=== PATIENT | female | born 1970 | race African-American/Black ===

== ENCOUNTER 2017-09-15 12:00 | Inpatient (IN) | payer MEDICAID, OTHER ==
[~2017-09-15] VITALS: Ht 160 cm; Wt 64.2 kg
[~2017-09-15 12:00] MED LIST: LEVO125T48 PO; NEVI200 PO; ZOVI800T13 PO; [UNRECOGNIZED DRUG - OTHER]
[2017-09-15 12:02] VITALS: BP 183/102; PULSE 76; RESP 16; TEMP 97.9; O2SAT 99
[2017-09-15] MEDS ORDERED: [UNRECOGNIZED DRUG - REMARK] (12:31)
[2017-09-15 12:32] VITALS: BP 141/93
--- NOTE | 2017-09-15 13:46 | PD ---
HPI Chief Complaint: Edema Time Seen by Provider: 12:41 Travel History International Travel<30 days: No Contact w/Intl Traveler<30days: No Traveled to known affect area: No History of Present Illness HPI Is a 47-year-old woman who presents to the emergency department complaining of pain and swelling to her right wrist. Is been going on for about 12 days or so now. She is on clindamycin for about a week and hasn't really helped. She has a history of HIV, is taking medications, but does know her last CD4 count. No history of major operation infections that she knows of. Pain is always gotten worse. She does feel some warmth. No fevers or chills. No history of IV drug use. Pain is radiating from the wrist up into the arm. She been taking over- the-counter medications which have not helped. History Past Medical History Narrative Medical HIV, diagnosed 89, on medications Hypothyroidism Social History Alcohol Use: Yes (occasional) Tobacco Use: No Allergies-Medications (Allergen,Severity, Reaction): Coded Allergies: egg (Verified Allergy, Intermediate, Cramping, 09/15/17) penicillin G (Unverified Allergy, Intermediate, rash, 09/15/17) Reported Meds & Prescriptions Reported Meds & Active Scripts Active Reported [unknown HIV med] Review of Systems Except as stated in HPI: all other systems reviewed are Neg Physical Exam Narrative GENERAL: Well-appearing 39 year-old woman, no acute distress. SKIN: Focused skin assessment warm/dry. HEAD: Atraumatic. Normocephalic. NECK: Trachea midline. No JVD. CARDIOVASCULAR: Regular rate and rhythm. No murmur appreciated. Soft systolic murmur in the right upper sternal border. RESPIRATORY: No accessory muscle use. Clear to auscultation. Breath sounds equal bilaterally. GASTROINTESTINAL: Abdomen soft, non-tender, nondistended. Hepatic and splenic margins not palpable. MUSCULOSKELETAL: Little bit visible fullness to the right wrist. She guards the wrist some and resists flexing or extending it at all. She move the fingers. It feels a little bit warm. There is no obvious color changes although she is dark skinned. Good pulses. NEUROLOGICAL: Awake and alert. No obvious cranial nerve deficits. Motor grossly within normal limits. Normal speech. PSYCHIATRIC: Appropriate mood and affect; insight and judgment normal. Data Data Last Documented VS Vital Signs Date Time Temp Pulse Resp B/P (MAP) Pulse Ox O2 Delivery O2 Flow Rate FiO2 09/15/17 12:32 141/93 (109) 09/15/17 12:02 97.9 76 16 99 Room Air Orders Orders Complete Blood Count With Diff (09/15/17 13:16) Comprehensive Metabolic Panel (09/15/17 13:16) Westergren Sedimentation Rate (09/15/17 13:16) C-Reactive Protein (Crp) (09/15/17 13:16) Iv Access Insert/Monitor (09/15/17 13:16) Aspiration, Wrist (09/15/17 ) Fluid Culture And Gram Stain (09/15/17 13:16) Synovial Fl Cell Count + Diff (09/15/17 13:16) Synovial Fluid Crystals (09/15/17 13:16) Synovial Fluid Glucose (09/15/17 13:16) Synovial Fluid Total Protein (09/15/17 13:16) Act Partial Throm Time (Ptt) (09/15/17 13:34) Prothrombin Time / Inr (Pt) (09/15/17 13:34) Mri Joint Wrist W/O Contrast (09/15/17 ) MDM Medical Decision Making Medical Screen Exam Complete: Yes Emergency Medical Condition: Yes Differential Diagnosis Inflammatory arthritis, septic arthritis, cellulitis, other Narrative Course Medical decision making 39 year-old woman presents emergency Department monoarticular arthritis with concern for septic arthritis. I think this is probably inflammatory. I spoke with interventional radiology. They recommended MRI first identify any potential effusion it could be drained. We'll check labs. Reassess. Pablito Jang MD Sep 15, 2017 13:46
[2017-09-15 15:15] LABS: AUTOMATED NEUTROPHIL # 6.6 TH/MM3 (1.8-7.7); BASOPHIL # 0.1 TH/MM3 (0-0.2); BASOPHIL % 0.8 % (0.0-2.0); EOSINOPHIL # 0.3 TH/MM3 (0-0.4); HEMATOCRIT 31.5 % (35.0-46.0); HEMO FLAGS DIFF FINAL; LYMPH % 21.5 % (9.0-44.0); LYMPHOCYTE # 2.2 TH/MM3 (1.0-4.8); MEAN CELL VOLUME 97.6 FL (80.0-100.0); MEAN CORPUSCULAR HGB CONC 34.8 % (32.0-36.0); MONO % 9.1 % (0.0-8.0); NEUT % 65.6 % (16.0-70.0); PLATELET COUNT 190 TH/MM3 (150-450); RED BLOOD COUNT 3.22 MIL/MM3 (4.00-5.30); RED CELL DISTRIBUTION WIDTH 16.6 % (11.6-17.2)
[2017-09-15 15:28] LABS: APTT (PATIENT) 31.3 SEC (24.3-30.1); INTERNATIONAL NORMALIZED RATIO 0.9 RATIO; PROTHROMBIN TIME - PATIENT 10.4 SEC (9.8-11.6)
[2017-09-15 15:45] LABS: ALT (GPT) 33 U/L (10-53); ANION GAP 7 MEQ/L (5-15); AST (GOT) 37 U/L (15-37); BICARBONATE 27.2 MEQ/L (21.0-32.0); BLOOD UREA NITROGEN 15 MG/DL (7-18); CHLORIDE 102 MEQ/L (98-107); GLOMERULAR FILTRATION RATE 40 ML/MIN (>89); POTASSIUM 3.7 MEQ/L (3.5-5.1); SODIUM (NA) 136 MEQ/L (136-145)
[2017-09-15 15:47] LABS: ALKALINE PHOSPHATASE 83 U/L (45-117); TOTAL BILIRUBIN ADULT 0.3 MG/DL (0.2-1.0)
--- NOTE | 2017-09-15 16:06 | RADRPT ---
EXAM DATE/TIME: 09/15/2017 14:18 [facility] COMPARISON: No previous studies available for comparison. INDICATIONS : Right wrist swelling. No injury. MEDICAL HISTORY : None. SURGICAL HISTORY : Hysterectomy. Umbilical hernia repair. ENCOUNTER: Initial ACUITY: 3 day PAIN SCORE: 4/10 LOCATION: Right wrist. TECHNIQUE: Multiplanar multisequence MRI examination of the wrist was performed without contrast. FINDINGS: INTRISIC LIGAMENTS: The scapholunate and lunotriquetral ligaments are intact. TRIANGULAR FIBROCARTILAGE: The triangular fibrocartilage complex is intact. TENDONS: All of the visualized tendons are intact. MARROW/CARTILAGE: Small amount of bony edema identified along the ulnar side of the lunate. OTHER: Very small joint effusion. Ulnar nerve and median nerve are intact. There is some regional soft tissu e edema/swelling anterior to the distal ulna. CONCLUSION: 1. Minimal bony edema identified along the ulnar side of the lunate. Carpal bones are otherwise intac t. 2. Very small joint effusion. 3. Edema in the volar soft tissues of the wrist, particularly overlying the distal ulna.. Raúl Willis MD on September 15, 2017 at 15:55 Board Certified Radiologist. This report was verified electronically.
--- NOTE | 2017-09-15 16:25 | PD.RAD ---
Post Procedure Progress Note Pre Procedure Diagnosis: (1) Pain and swelling of right wrist Post Procedure Diagnosis: (1) Pain and swelling of right wrist Procedure Date: Sep 15, 2017 Supervising Radiologist: Roger Askew JR Proceduralist/Assist: Derrek Childers RT(R), Colin Jessica RT(R) Anesthesia: Local Plan of Activity Patient to Unit: Nursing Unit Patient Condition: Good Additional Comments: Aspiration of the right radiocarpal joint done under fluoroscopic control. 0.1 mL of clear, straw-colored fluid obtained. Sent to lab. See PACS Report for procedural detail/treatment Jr. Azar,Roger Adams MD Sep 15, 2017 16:25
[2017-09-15 17:01] VITALS: BP 154/85; PULSE 98; RESP 17; TEMP 98.2; O2SAT 98
--- NOTE | 2017-09-15 17:41 | RADRPT ---
EXAM DATE/TIME: 09/15/2017 16:19 [facility] COMPARISON: No previous studies available for comparison. INDICATIONS : Patient presents with pain and swelling in right wrist joint in need of aspiration of joint for furth er evaluation. MEDICAL HISTORY : Hx HIV Hypothyroidism SURGICAL HISTORY : n/a ENCOUNTER: Initial ACUITY: 2 weeks PAIN SCORE: 4/10 LOCATION: Right WRIST FLUORO TIME: 1.0 minutes IMAGE SERIES: 0 DEVICE(S): 27 gauge needle was placed into the right wrist joint. RESPONSE: Pre procedure pain level was 4/10 Post procedure pain level was 0/10 FLUID: Total volume of 0.1 cc of clear fluid was removed. PROCEDURE : 1. Fluoroscopically guided right wrist aspiration. The risks, benefits and alternatives to the procedure were explained and verbal and written consent w as obtained. The site was prepped in sterile fashion. Full sterile technique was used, including ca p, mask, sterile gloves and gown and a large sterile sheet. Hand hygiene and 2% chlorhexidine and/or betadine/alcohol prep was utilized per protocol for cutaneous antisepsis. The skin and subcutaneous tissues were infiltrated with local anesthetic solution. Under direct fluoroscopic guidance a 27 gauge needle was passed into the radiocarpal joint utilizing a dorsal approach. Aspiration yielded 0.1 mL of clear straw-colored fluid. A sample was sent to the l ab as requested. The patient tolerated the procedure well and there were no complications. CONCLUSION: Uncomplicated aspiration as above. Roger Askew Jr., MD on September 15, 2017 at 17:37 Board Certified Radiologist. This report was verified electronically.
[2017-09-15] MEDS ORDERED: ACETAMINOPHEN 325 MG TAB PO PRN (18:00)
[2017-09-15] MEDS ORDERED: ONDANSETRON HCL 4 MG/2 ML VIAL IV PUSH PRN (18:00)
[2017-09-15 19:00] VITALS: BP 148/83; TEMP 97.9
[2017-09-15 19:30] VITALS: BP 160/94; PULSE 62; RESP 18; TEMP 97.3; O2SAT 100
[2017-09-15] MEDS ORDERED: ABAC1TAB3 PO (22:34)
--- NOTE | 2017-09-15 22:38 | HHI.HP ---
[facility] Service [facility] Primary Care Physician Unknown Admission Diagnosis monoarticular arthritis, r/o septic arthritis Diagnoses: (1) Pain and swelling of right wrist Chief Complaint: right hand and wrist swelling and pain Travel History International Travel<30 Days: No Contact w/Intl Traveler <30 Da: No Traveled to Known Affected Are: No History of Present Illness Written by Christie Cooley, acting as scribe for Dr. Coto on 09/15/17 at 22:38. The patient was seen in the hospital room. The patient states she is HIV +. Right wrist has been swollen for 12 days; pain radiates up arm from wrist. She went to a hospital in [place] and xray and ct scan were done and antibiotics. She took 9 days of antibiotics - Clindamycin. Septic arthritis vs cryoglobulinemia. She went to her doctor who manages her HIV and he told her to stop the antibiotics. Denies fevers. The patient denies any history of arthritis. Past two weeks: denies chest pain, dizziness, shortness of breath, nausea, vomiting, diarrhea, black or red stool. No animal or insect bites. She states she just woke up one morning and right wrist was swollen. Denies injury. Left hand is also noted to be swollen during visit; denies injury. Review of Systems Except as stated in HPI: all other systems reviewed are Neg Past Family Social History Past Medical History Thyroid problems - has not been started on thyroid medications yet HIV + Denies hypertension, dm, copd/emphysema, asthma, CAD, DVT, PE, liver or kidney problems, seizures, or cancers. . Past Surgical History Hysterectomy Hernia repair . Reported Medications Reported Meds & Active Scripts Active Reported Triumeq (Vbigxhso-Fbmcgmntgogc-Ujgacdmqil) 600-50-300 Mg Tab 1 Tab PO DAILY Hazardous agent; use appropriate precautions for handling & disposal. [unknown HIV med] . Allergies: Coded Allergies: egg (Verified Allergy, Intermediate, Cramping, 09/15/17) penicillin G (Unverified Allergy, Intermediate, rash, 09/15/17) Active Ordered Medications Current Medications Acetaminophen (Tylenol) 650 mg Q4H PRN PO PAIN 1-10/FEVER Last administered on 09/15/17t 20:30; Start 09/15/17 at 18:00 Ondansetron HCl (Zofran Inj) 4 mg Q8HR PRN IV PUSH NAUSEA; Start 09/15/17 at 18:00 . Family History Mother with breast cancer . Social History Tobacco: denies Alcohol: occasional Illicit Drugs: occasional marijuana, denies IVDA, denies cocaine . Physical Exam Vital Signs Vital Signs Date Time Temp Pulse Resp B/P (MAP) Pulse Ox O2 Delivery O2 Flow Rate FiO2 09/15/17 19:30 97.3 62 18 160/94 (116) 100 09/15/17 19:00 97.9 96 17 148/83 (104) 99 09/15/17 17:01 98.2 98 17 154/85 (108) 98 Room Air 09/15/17 14:40 78 17 99 Room Air 09/15/17 12:32 141/93 (109) 09/15/17 12:02 97.9 76 16 183/102 (129) 99 Room Air Physical Exam GENERAL: This is a well-nourished, well-developed patient, in no apparent distress. SKIN: No rashes or lesions. Cool and dry. Clean bandaid noted right wrist. HEAD: Atraumatic. Normocephalic. EYES: No scleral icterus. No injection or drainage. ENT: Nose without bleeding, purulent drainage. NECK: Trachea midline. No JVD. CARDIOVASCULAR: Regular rate and rhythm without murmurs, gallops, or rubs. RESPIRATORY: Clear to auscultation. Breath sounds equal bilaterally. No wheezes , rales, or rhonchi. GASTROINTESTINAL: Abdomen soft, non-tender, nondistended. No guarding. MUSCULOSKELETAL: Extremities without clubbing, cyanosis. No calf tenderness. Bilateral proximal hand and wrist swelling. Patient also complaining of discomfort. NEUROLOGICAL: Awake and alert. Motor and sensory grossly within normal limits. Normal speech. . Laboratory Laboratory Tests Test 09/15/17 14:50 White Blood Count 10.0 Red Blood Count 3.22 Hemoglobin 11.0 Hematocrit 31.5 Mean Corpuscular Volume 97.6 Mean Corpuscular Hemoglobin 34.0 Mean Corpuscular Hemoglobin Concent 34.8 Red Cell Distribution Width 16.6 Platelet Count 190 Mean Platelet Volume 8.4 Neutrophils (%) (Auto) 65.6 Lymphocytes (%) (Auto) 21.5 Monocytes (%) (Auto) 9.1 Eosinophils (%) (Auto) 3.0 Basophils (%) (Auto) 0.8 Neutrophils # (Auto) 6.6 Lymphocytes # (Auto) 2.2 Monocytes # (Auto) 0.9 Eosinophils # (Auto) 0.3 Basophils # (Auto) 0.1 CBC Comment DIFF FINAL Differential Comment Erythrocyte Sedimentation Rate 68 Prothrombin Time 10.4 Prothromb Time International Ratio 0.9 Activated Partial Thromboplast Time 31.3 Blood Urea Nitrogen 15 Creatinine 1.64 Random Glucose 85 Total Protein 7.8 Albumin 3.4 Calcium Level 8.6 Alkaline Phosphatase 83 Aspartate Amino Transf (AST/SGOT) 37 Alanine Aminotransferase (ALT/SGPT) 33 Total Bilirubin 0.3 Sodium Level 136 Potassium Level 3.7 Chloride Level 102 Carbon Dioxide Level 27.2 Anion Gap 7 Estimat Glomerular Filtration Rate 40 C-Reactive Protein 1.28 Date/Time Source Procedure Growth Status 09/15/17 16:19 Fluid Synovial Fluid Gram Stain Pending Received 09/15/17 16:19 Fluid Synovial Fluid Body Fluid Culture Pending Received Result Diagram: 09/15/17 1450 09/15/17 1450 Imaging Last Impressions Wrist MRI 09/15/17 0000 Signed Impressions: Service Date/Time: Friday, September 15, 2017 14:18 - CONCLUSION: 1. Minimal bony edema identified along the ulnar side of the lunate. Carpal bones are otherwise intact. 2. Very small joint effusion. 3. Edema in the volar soft tissues of the wrist, particularly overlying the distal ulna.. Raúl Willis MD Aspiration 09/15/17 0000 Signed Impressions: Service Date/Time: Friday, September 15, 2017 16:19 - CONCLUSION: Uncomplicated aspiration as above. Roger Askew Jr., MD Caprini VTE Risk Assessment Caprini VTE Risk Assessment: Mod/High Risk (score >= 2) Caprini Risk Assessment Model Point Value = 1 Point Value = 2 Point Value = 3 Point Value = 5 Age 41-60 Minor surgery BMI > 25 kg/m2 Swollen legs Varicose veins or History of unexplained or recurrent spontaneous Oral contraceptives or hormone replacement Sepsis (< 1 month) Serious lung disease, including pneumonia (< 1 month) Abnormal pulmonary function Acute myocardial infarction Congestive heart failure (< 1 month) History of inflammatory bowel disease Medical patient at bed rest Age 61-74 Arthroscopic surgery Major open surgery (> 45 min) Laparoscopic surgery (> 45 min) Malignancy Confined to bed (> 72 hours) Immobilizing plaster cast Central venous access Age >= 75 History of VTE Family history of VTE Factor V Leiden Prothrombin [id number] Lupus anticoagulant Anticardiolipin antibodies Elevated serum homocysteine Heparin-induced thrombocytopenia Other congenital or acquired thrombophilia Stroke (< 1 month) Elective arthroplasty Hip, pelvis, or leg fracture Acute spinal cord injury (< 1 month) Prophylaxis Regimen Total Risk Factor Score Risk Level Prophylaxis Regimen 0-1 Low Early ambulation 2 Moderate Order ONE of the following: *Sequential Compression Device (SCD) *Heparin 5000 units SQ BID 3-4 Higher Order ONE of the following medications: *Heparin 5000 units SQ TID *Enoxaparin/Lovenox 40 mg SQ daily (WT < 150 kg, CrCl > 30 mL/min) *Enoxaparin/Lovenox 30 mg SQ daily (WT < 150 kg, CrCl > 10-29 mL/min) *Enoxaparin/Lovenox 30 mg SQ BID (WT < 150 kg, CrCl > 30 mL/min) AND/OR *Sequential Compression Device (SCD) 5 or more Highest Order ONE of the following medications: *Heparin 5000 units SQ TID (Preferred with Epidurals) *Enoxaparin/Lovenox 40 mg SQ daily (WT < 150 kg, CrCl > 30 mL/min) *Enoxaparin/Lovenox 30 mg SQ daily (WT < 150 kg, CrCl > 10-29 mL/min) *Enoxaparin/Lovenox 30 mg SQ BID (WT < 150 kg, CrCl > 30 mL/min) AND *Sequential Compression Device (SCD) Assessment and Plan Problem List: (1) Pain and swelling of right wrist ICD Code: M25.531 - Pain in right wrist; M25.431 - Effusion, right wrist (2) Hypothyroidism ICD Code: E03.9 - Hypothyroidism, unspecified Status: Chronic (3) Acute on chronic renal insufficiency ICD Code: N28.9 - Disorder of kidney and ureter, unspecified; N18.9 - Chronic kidney disease, unspecified (4) HIV disease ICD Code: B20 - Human immunodeficiency virus [HIV] disease Status: Chronic Assessment and Plan 47 y/o HIV + patient with right wrist and hand pain and swelling with concern for septic arthritis who failed out patient therapy: Joint effusion - right wrist; likely secondary to inflammatory arthritis - joint was aspirated by invasive radiologist - await culture results to start any antibiotics - seems more likely to be inflammatory than infectious - ESR - 68 - CRP - 1.28 - Lortab 5/325 p.o. q4h prn pain > 5 (verbally ordered) History of hypothyroidism - off medications for one year - did not follow up with pcp for recheck of labs - check TSH, free T4 (verbally ordered) Acute on chronic renal insufficiency - BUN - 16, Creatinine - 1.64 e GFR - 40 - recheck bmp in a.m. and follow trends in renal indices (verbally ordered) - avoid nephrotoxins HIV + - resume home hiv medication DVT prophylaxis - Heparin 5000 units subq BID (verbally ordered) Discussed Condition With ER physician, RN, and patient Physician Certification 2 Midnight Certification Type: Admission for Inpatient Services Order for Inpatient Services The services are ordered in accordance with Medicare regulations or non- Medicare payer requirements, as applicable. In the case of services not specified as inpatient-only, they are appropriately provided as inpatient services in accordance with the 2-midnight benchmark. Estimated LOS (days): 2 days is the estimated time the patient will need to remain in the hospital, assuming treatment plan goals are met and no additional complications. Post-Hospital Plan: Home Christie Cooley Sep 15, 2017 22:38
[2017-09-15] MEDS: ACETAMINOPHEN/HYDROcodone 325 MG/5 MG TAB PO PRN (23:30)
[2017-09-15] MEDS: HEPARIN SODIUM - SQ 10,000 UNITS/ML VIAL SQ SCH (23:37)
[2017-09-16 00:42] VITALS: BP 119/81; PULSE 62; RESP 16; TEMP 96.8; O2SAT 100
[2017-09-16] MEDS: ACETAMINOPHEN/HYDROcodone 325 MG/5 MG TAB PO PRN ×3 (03:36→17:55)
[2017-09-16 04:05] VITALS: BP 157/97; PULSE 65; RESP 16; TEMP 96.8; O2SAT 99
[2017-09-16 07:14] LABS: ANION GAP 4 MEQ/L (5-15); BICARBONATE 28.6 MEQ/L (21.0-32.0); BLOOD UREA NITROGEN 17 MG/DL (7-18); CHLORIDE 102 MEQ/L (98-107); GLOMERULAR FILTRATION RATE 45 ML/MIN (>89); POTASSIUM 3.8 MEQ/L (3.5-5.1); SODIUM (NA) 135 MEQ/L (136-145)
[2017-09-16 07:24] LABS: FREE T4 0.18 NG/DL (0.76-1.46)
[2017-09-16 08:00] VITALS: BP 142/89; PULSE 61; RESP 18; TEMP 96.6; O2SAT 100
[2017-09-16] MEDS ORDERED: DOLUTEGRAVIR SODIUM 50 MG TAB PO SCH (09:00)
[2017-09-16] MEDS ORDERED: ABACAVIR SULFATE 300 MG TAB PO SCH (09:00)
[2017-09-16] MEDS ORDERED: NON-FORMULARY DRUG (Abacavir-Dolutegravir-Lamivudine (Triumeq) 1 TAB) PO SCH (09:00)
--- NOTE | 2017-09-16 10:50 | HHI.PR ---
Subjective Remarks in no acute distress. has some swelling of the right wrist. no fever. no other complaints. Objective Vitals Vital Signs Date Time Temp Pulse Resp B/P (MAP) Pulse Ox O2 Delivery O2 Flow Rate FiO2 09/16/17 08:00 96.6 61 18 142/89 (106) 100 09/16/17 04:05 96.8 65 16 157/97 (117) 99 09/16/17 00:42 96.8 62 16 119/81 (94) 100 09/15/17 19:30 97.3 62 18 160/94 (116) 100 09/15/17 19:00 97.9 96 17 148/83 (104) 99 09/15/17 17:01 98.2 98 17 154/85 (108) 98 Room Air 09/15/17 14:40 78 17 99 Room Air 09/15/17 12:32 141/93 (109) 09/15/17 12:02 97.9 76 16 183/102 (129) 99 Room Air I/O 09/15/17 09/15/17 09/15/17 09/16/17 09/16/17 09/16/17 07:00 15:00 23:00 07:00 15:00 23:00 Intake Total 360 ml 480 ml Balance 360 ml 480 ml Intake Oral 360 ml 480 ml # Voids 1 6 # Bowel Movements 0 0 Result Diagram: 09/15/17 1450 09/16/17 0604 Imaging Last Impressions Wrist MRI 09/15/17 0000 Signed Impressions: Service Date/Time: Friday, September 15, 2017 14:18 - CONCLUSION: 1. Minimal bony edema identified along the ulnar side of the lunate. Carpal bones are otherwise intact. 2. Very small joint effusion. 3. Edema in the volar soft tissues of the wrist, particularly overlying the distal ulna.. Raúl Willis MD Aspiration 09/15/17 0000 Signed Impressions: Service Date/Time: Friday, September 15, 2017 16:19 - CONCLUSION: Uncomplicated aspiration as above. Roger Askew Jr., MD Objective Remarks GENERAL: This is a well-nourished, well-developed patient, in no apparent distress. CARDIOVASCULAR: Regular rate and regular rhythm without murmurs, gallops, or rubs. RESPIRATORY: Clear to auscultation. Breath sounds equal bilaterally. No wheezes , rales, or rhonchi. GASTROINTESTINAL: Abdomen soft, non-tender, nondistended. Normal, active bowel sounds MUSCULOSKELETAL: right wrist is mildly swollen. NEURO: Alert & Oriented x4 to person, place, time, situation. Moves all ext x4 Procedures aspiration of the right wrist joint. Medications and IVs Current Medications Acetaminophen (Tylenol) 650 mg Q4H PRN PO PAIN 1-5/FEVER Last administered on 09/15/17 20:30; Start 09/15/17 at 18:00 Ondansetron HCl (Zofran Inj) 4 mg Q8HR PRN IV PUSH NAUSEA; Start 09/15/17 at 18:00 Non-Formulary Medication 1 tab DAILY PO ; Start 09/16/17 at 09:00; Stop at 09:00; Status DC Abacavir Sulfate (Ziagen) 600 mg DAILY PO ; Start 09/16/17 at 09:00 Heparin Sodium (Porcine) (Heparin Inj) 5,000 units Q12H SQ Last administered on 09/15/17 23:37; Start 09/16/17 at 00:00 Acetaminophen/ Hydrocodone Bitart ([place] 5-325 Mg) 1 tab Q4H PRN PO PAIN > 5 Last administered on 09/16/17 03:36; Start 09/15/17 at 23:15 Lamivudine (Epivir) 300 mg DAILY PO ; Start 09/16/17 at 09:00 A/P Problem List: (1) Pain and swelling of right wrist ICD Code: M25.531 - Pain in right wrist; M25.431 - Effusion, right wrist (2) Hypothyroidism ICD Code: E03.9 - Hypothyroidism, unspecified Status: Chronic (3) Acute on chronic renal insufficiency ICD Code: N28.9 - Disorder of kidney and ureter, unspecified; N18.9 - Chronic kidney disease, unspecified (4) HIV disease ICD Code: B20 - Human immunodeficiency virus [HIV] disease Status: Chronic Assessment and Plan A/P Joint effusion - right wrist; likely secondary to inflammatory arthritis - joint was aspirated by invasive radiologist - await culture results - seems more likely to be inflammatory than infectious - ESR - 68 - CRP - 1.28 - continue with pain control. -check FOREIGN and RF History of hypothyroidism - off medications for one year - did not follow up with pcp for recheck of labs - restart on synthroid -TSH in 3-4 weeks- f/u as outpatient. renal insufficiency with unknown duration-likely chronic. -will monitor - avoid nephrotoxins HIV + - resumed home hiv medication DVT prophylaxis - Heparin 5000 units subq BID . Discharge Planning possible dc home tomorrow -pending the fluid culture result. Valeri Millan MD Sep 16, 2017 10:50
[2017-09-16] MEDS: LEVOTHYROXINE SODIUM 50 MCG TAB PO SCH (11:43)
[2017-09-16 12:00] VITALS: BP 167/98; PULSE 69; RESP 20; TEMP 96.9; O2SAT 100
[2017-09-16] MEDS: HEPARIN SODIUM - SQ 10,000 UNITS/ML VIAL SQ SCH (12:14)
[2017-09-16 15:59] VITALS: BP 142/92; PULSE 72; RESP 17; TEMP 98.7
[2017-09-16 16:08] LABS: RHEUMATOID FACTOR TRIGGER LESS THAN 10.0 IU/ML (0.0-14.9)
[2017-09-16 19:30] VITALS: BP 126/83; PULSE 71; RESP 18; TEMP 97.3; O2SAT 100
[2017-09-16] MEDS: DOLUTEGRAVIR SODIUM 50 MG TAB PO SCH (20:10)
[2017-09-16] MEDS: ABACAVIR SULFATE 300 MG TAB PO SCH (20:10)
[2017-09-17 00:15] VITALS: BP_SYST 120; BP_SYST 136; BP_DIAS 72; BP_DIAS 95; PULSE 118; PULSE 59; RESP 16; RESP 17; TEMP 96.8; TEMP 97.7; O2SAT 95; O2SAT 96
[2017-09-17] MEDS: HEPARIN SODIUM - SQ 10,000 UNITS/ML VIAL SQ SCH ×2 (00:15→13:41)
[2017-09-17 00:40] VITALS: PULSE 74; RESP 16
[2017-09-17] MEDS: LEVOTHYROXINE SODIUM 50 MCG TAB PO SCH (05:06)
[2017-09-17] MEDS: ACETAMINOPHEN/HYDROcodone 325 MG/5 MG TAB PO PRN ×2 (05:06→13:42)
[2017-09-17 07:21] VITALS: BP 142/91; PULSE 80; RESP 16; TEMP 96.7; O2SAT 100
--- NOTE | 2017-09-17 10:54 | HHI.PR ---
Subjective Remarks in no acute distress. no fever. still with some swelling and pain to the right wrist. Objective Vitals Vital Signs Date Time Temp Pulse Resp B/P (MAP) Pulse Ox O2 Delivery O2 Flow Rate FiO2 09/17/17 07:21 96.7 80 16 142/91 (108) 100 09/17/17 00:40 74 16 09/17/17 00:15 97.7 118 17 136/95 (109) 96 09/16/17 19:30 97.3 71 18 126/83 (97) 100 09/16/17 15:59 98.7 72 17 142/92 (109) 09/16/17 12:00 96.9 69 20 167/98 (121) 100 I/O 09/16/17 09/16/17 09/16/17 09/17/17 09/17/17 09/17/17 07:00 15:00 23:00 07:00 15:00 23:00 Intake Total 480 ml 1440 ml 360 ml Balance 480 ml 1440 ml 360 ml Intake Oral 480 ml 1440 ml 360 ml # Voids 6 7 3 # Bowel Movements 0 0 0 Result Diagram: 09/15/17 1450 09/16/17 0604 Imaging Last Impressions Wrist MRI 09/15/17 0000 Signed Impressions: Service Date/Time: Friday, September 15, 2017 14:18 - CONCLUSION: 1. Minimal bony edema identified along the ulnar side of the lunate. Carpal bones are otherwise intact. 2. Very small joint effusion. 3. Edema in the volar soft tissues of the wrist, particularly overlying the distal ulna.. Raúl Willis MD Aspiration 09/15/17 0000 Signed Impressions: Service Date/Time: Friday, September 15, 2017 16:19 - CONCLUSION: Uncomplicated aspiration as above. Roger Askew Jr., MD Objective Remarks GENERAL: This is a well-nourished, well-developed patient, in no apparent distress. CARDIOVASCULAR: Regular rate and regular rhythm without murmurs, gallops, or rubs. RESPIRATORY: Clear to auscultation. Breath sounds equal bilaterally. No wheezes , rales, or rhonchi. GASTROINTESTINAL: Abdomen soft, non-tender, nondistended. Normal, active bowel sounds MUSCULOSKELETAL: right wrist is mildly swollen. NEURO: Alert & Oriented x4 to person, place, time, situation. Moves all ext x4 Procedures aspiration of the right wrist joint. Medications and IVs Current Medications Acetaminophen (Tylenol) 650 mg Q4H PRN PO PAIN 1-5/FEVER Last administered on 09/15/17 20:30; Start 09/15/17 at 18:00 Ondansetron HCl (Zofran Inj) 4 mg Q8HR PRN IV PUSH NAUSEA Last administered on 09/16/17 21:00; Start 09/15/17 at 18:00 Non-Formulary Medication 1 tab DAILY PO ; Start 09/16/17 at 09:00; Stop at 09:00; Status DC Abacavir Sulfate (Ziagen) 600 mg DAILY PO ; Start 09/16/17 at 09:00; Stop at 11:46; Status DC Heparin Sodium (Porcine) (Heparin Inj) 5,000 units Q12H SQ Last administered on 09/17/17 00:15; Start 09/16/17 at 00:00 Acetaminophen/ Hydrocodone Bitart ([place] 5-325 Mg) 1 tab Q4H PRN PO PAIN > 5 Last administered on 09/17/17 05:06; Start 09/15/17 at 23:15 Lamivudine (Epivir) 300 mg DAILY PO ; Start 09/16/17 at 09:00; Stop 09/16/17 at 11:47; Status DC Levothyroxine Sodium (Synthroid) 50 mcg DAILY@0600 PO Last administered on 05:06; Start 09/16/17 at 11:43 Abacavir Sulfate (Ziagen) 600 mg HS PO ; Start 09/16/17 at 21:00 Lamivudine (Epivir) 300 mg HS PO ; Start 09/16/17 at 21:00 A/P Problem List: (1) Pain and swelling of right wrist ICD Code: M25.531 - Pain in right wrist; M25.431 - Effusion, right wrist (2) Hypothyroidism ICD Code: E03.9 - Hypothyroidism, unspecified Status: Chronic (3) Acute on chronic renal insufficiency ICD Code: N28.9 - Disorder of kidney and ureter, unspecified; N18.9 - Chronic kidney disease, unspecified (4) HIV disease ICD Code: B20 - Human immunodeficiency virus [HIV] disease Status: Chronic Assessment and Plan A/P right wrist swelling/ pain with small joint effusion likely secondary to inflammatory arthritis - still painful and swollen. - joint was aspirated by invasive radiologist - cultures negative - - ESR - 68 - CRP - 1.28 - continue with pain control. -RF negative- FOREIGN pending. -will consult hand surgery. History of hypothyroidism - off medications for one year - did not follow up with pcp for recheck of labs - restarted on synthroid -TSH in 3-4 weeks- f/u as outpatient. renal insufficiency with unknown duration-likely chronic. -will monitor - avoid nephrotoxins HIV + - resumed home hiv medication DVT prophylaxis - Heparin 5000 units subq BID . Discharge Planning still with painful right wrist. consulted hand surgery. case management to assist with outpatient f/u's. Valeri Millan MD Sep 17, 2017 10:54
[2017-09-17 11:30] VITALS: BP 153/92; PULSE 70; RESP 17; TEMP 96.7; O2SAT 100
[2017-09-17 15:30] VITALS: BP 138/88; PULSE 76; RESP 17; TEMP 97.8; O2SAT 99
[2017-09-17 20:00] VITALS: BP 123/82; PULSE 84; RESP 16; TEMP 98; O2SAT 99
[2017-09-17] MEDS: DOLUTEGRAVIR SODIUM 50 MG TAB PO SCH (20:52)
[2017-09-17] MEDS: ABACAVIR SULFATE 300 MG TAB PO SCH (20:52)
--- NOTE | 2017-09-17 20:59 | MB ---
cc: LORENZALALIT DATE OF CONSULTATION September 17, 2017 REASON FOR CONSULTATION Right wrist pain. HISTORY OF PRESENT ILLNESS The patient is a right-hand dominant female who presented with complaints of pain and swelling involving the right wrist for the past 2 weeks. She also complains of pain involving the right and left thumb. The patient was initially seen at [facility], was diagnosed with osteomyelitis and she was referred to [facility] for the same. The patient had an MRI of the right wrist and she also had aspiration of the wrist and hand surgery was consulted for right wrist pain and swelling. The patient states she has had pain involving the right wrist for the past 12 days. She also complains of worsening symptoms with exposure to cold. The patient also states she has worsening pain with making a fist. Denies any previous history of similar complaints in the past but denies any history of gout. Denies any tingling or numbness. She also complains of pain involving both thumb region. She gives history of HIV. Denies any injury. Denies any drainage. PAST MEDICAL HISTORY Significant for positive for HIV for which she is on medication. PAST SURGICAL HISTORY Significant for hysterectomy and hernia repair. PHYSICAL EXAMINATION GENERAL: The patient is alert, oriented x3. DIRECTED EXAMINATION: Examination of right upper extremity reveals swelling over the dorsal aspect of the hand and wrist. No increased warmth noted. Tenderness noted over the dorsal aspect of the distant dorsal aspect of the hand. Mild swelling of the thumb noted. Tenderness noted over the IP joint of the thumb. The wrist range of motion, terminal degrees of flexion and extension is painful. She is able to make a full fist. Terminal degrees of flexion of the fingers associated with pain. She has intact sensation distally. Forearm rotations are full and painless. Examination of left hand reveals swelling of the thumb. Tenderness noted over the IP joint region of the thumb. She is able to make a full fist. She has full extension of the fingers. She has intact sensation distally. LABORATORY DATA Lab work was reviewed. She has a white count of 10, ESR of 68. She has C-reactive protein of 1.28. IMAGING STUDIES MRI scan of the right wrist done on September 15, 2017 shows evidence of very minimal joint effusion. No evidence of ligamentous injury. No signs concerning for septic arthritis. ASSESSMENT A 47-year-old female with right wrist pain and swelling with bilateral thumb pain. ASSESSMENT I do not see any clinical evidence of septic arthritis. She does have right wrist pain with bilateral thumb pain most likely inflammatory arthritis versus synovitis. She would benefit from a wrist brace and anti-inflammatory medications. Consider either steroids or ____. Given her poor kidney function would consider steroids. ___ and likely Medrol Dosepak. No active surgical management needed at present time. Hand surgery will follow. Lalit Castrejon MD SE/MAXX /6:14 PM /8:42 PM
[2017-09-18] VITALS: BP 141/77; PULSE 69; RESP 17; TEMP 97.9; O2SAT 99
[2017-09-18] MEDS: HEPARIN SODIUM - SQ 10,000 UNITS/ML VIAL SQ SCH ×2 (00:29→13:16)
[2017-09-18] MEDS: LEVOTHYROXINE SODIUM 50 MCG TAB PO SCH (05:06)
[2017-09-18] MEDS: ACETAMINOPHEN/HYDROcodone 325 MG/5 MG TAB PO PRN (05:07)
[2017-09-18 08:00] VITALS: BP 143/86; PULSE 66; RESP 16; TEMP 96.5; O2SAT 100
[2017-09-18 12:00] VITALS: BP 147/93; PULSE 66; RESP 16; TEMP 97.2; O2SAT 100
--- NOTE | 2017-09-18 12:15 | HHI.PR ---
Subjective Remarks in no acute distress. pain to the right wrist is better. no fever. no new complaints. d/w the RN. Objective Vitals Vital Signs Date Time Temp Pulse Resp B/P (MAP) Pulse Ox O2 Delivery O2 Flow Rate FiO2 09/18/17 08:00 96.5 66 16 143/86 (105) 100 09/18/17 00:00 97.9 69 17 141/77 (98) 99 09/17/17 20:00 98.0 84 16 123/82 (96) 99 09/17/17 15:30 97.8 76 17 138/88 (105) 99 I/O 09/17/17 09/17/17 09/17/17 09/18/17 09/18/17 09/18/17 07:00 15:00 23:00 07:00 15:00 23:00 Intake Total 360 ml 960 ml 720 ml 480 ml Output Total 550 ml Balance 360 ml 960 ml 720 ml -70 ml Intake Oral 360 ml 960 ml 720 ml 480 ml Output Urine Total 550 ml # Voids 3 5 2 # Bowel Movements 0 0 Result Diagram: 09/15/17 1450 09/16/17 0604 Imaging Last Impressions Wrist MRI 09/15/17 0000 Signed Impressions: Service Date/Time: Friday, September 15, 2017 14:18 - CONCLUSION: 1. Minimal bony edema identified along the ulnar side of the lunate. Carpal bones are otherwise intact. 2. Very small joint effusion. 3. Edema in the volar soft tissues of the wrist, particularly overlying the distal ulna.. Raúl Willis MD Aspiration 09/15/17 0000 Signed Impressions: Service Date/Time: Friday, September 15, 2017 16:19 - CONCLUSION: Uncomplicated aspiration as above. Roger Askew Jr., MD Objective Remarks GENERAL: This is a well-nourished, well-developed patient, in no apparent distress. CARDIOVASCULAR: Regular rate and regular rhythm without murmurs, gallops, or rubs. RESPIRATORY: Clear to auscultation. Breath sounds equal bilaterally. No wheezes , rales, or rhonchi. GASTROINTESTINAL: Abdomen soft, non-tender, nondistended. Normal, active bowel sounds MUSCULOSKELETAL: right wrist is mildly swollen. NEURO: Alert & Oriented x4 to person, place, time, situation. Moves all ext x4 Procedures aspiration of the right wrist joint. Medications and IVs Current Medications Acetaminophen (Tylenol) 650 mg Q4H PRN PO PAIN 1-5/FEVER Last administered on 09/15/17 20:30; Start 09/15/17 at 18:00 Ondansetron HCl (Zofran Inj) 4 mg Q8HR PRN IV PUSH NAUSEA Last administered on 09/16/17 21:00; Start 09/15/17 at 18:00 Non-Formulary Medication 1 tab DAILY PO ; Start 09/16/17 at 09:00; Stop at 09:00; Status DC Abacavir Sulfate (Ziagen) 600 mg DAILY PO ; Start 09/16/17 at 09:00; Stop at 11:46; Status DC Heparin Sodium (Porcine) (Heparin Inj) 5,000 units Q12H SQ Last administered on 09/18/17 00:29; Start 09/16/17 at 00:00 Acetaminophen/ Hydrocodone Bitart ([place] 5-325 Mg) 1 tab Q4H PRN PO PAIN > 5 Last administered on 09/18/17 05:07; Start 09/15/17 at 23:15 Lamivudine (Epivir) 300 mg DAILY PO ; Start 09/16/17 at 09:00; Stop 09/16/17 at 11:47; Status DC Levothyroxine Sodium (Synthroid) 50 mcg DAILY@0600 PO Last administered on 05:06; Start 09/16/17 at 11:43 Abacavir Sulfate (Ziagen) 600 mg HS PO ; Start 09/16/17 at 21:00 Lamivudine (Epivir) 300 mg HS PO ; Start 09/16/17 at 21:00 A/P Problem List: (1) Pain and swelling of right wrist ICD Code: M25.531 - Pain in right wrist; M25.431 - Effusion, right wrist (2) Hypothyroidism ICD Code: E03.9 - Hypothyroidism, unspecified Status: Chronic (3) Acute on chronic renal insufficiency ICD Code: N28.9 - Disorder of kidney and ureter, unspecified; N18.9 - Chronic kidney disease, unspecified (4) HIV disease ICD Code: B20 - Human immunodeficiency virus [HIV] disease Status: Chronic Assessment and Plan A/P right wrist swelling/ pain with small joint effusion likely secondary to inflammatory arthritis -better today. - joint was aspirated by invasive radiologist - cultures negative - - ESR - 68 - CRP - 1.28 - continue with pain control. -RF negative- FOREIGN negative. -hand surgery evaluation appreciated; will discharge on po steroids. History of hypothyroidism - off medications for one year - did not follow up with pcp for recheck of labs - restarted on synthroid -TSH in 3-4 weeks- f/u as outpatient. renal insufficiency with unknown duration-likely chronic. -will monitor - avoid nephrotoxins HIV + - resumed home hiv medication DVT prophylaxis - Heparin 5000 units subq BID . Discharge Planning dc home today. see med list. f/u; pcp. d/w the patient and RN. Valeri Millan MD Sep 18, 2017 12:15
[2017-09-18] MEDS ORDERED: HYDR-3516 PO (12:17)
[2017-09-18] MEDS ORDERED: MEDR4PAK PO (12:17)
[2017-09-18] MEDS ORDERED: LEVO.05 PO (12:17)
--- NOTE | 2017-09-18 12:18 | HHI.DS ---
Discharge Summary Admission Date Sep 15, 2017 at 18:13 Discharge Date: Sep 18, 2017 Admitting Diagnosis monoarticular arthritis, r/o septic arthritis (1) Pain and swelling of right wrist ICD Code: M25.531 - Pain in right wrist; M25.431 - Effusion, right wrist Diagnosis: Principal (2) Hypothyroidism ICD Code: E03.9 - Hypothyroidism, unspecified Diagnosis: Secondary Status: Chronic (3) Acute on chronic renal insufficiency ICD Code: N28.9 - Disorder of kidney and ureter, unspecified; N18.9 - Chronic kidney disease, unspecified Diagnosis: Secondary (4) HIV disease ICD Code: B20 - Human immunodeficiency virus [HIV] disease Diagnosis: Secondary Status: Chronic Procedures aspiration of the right wrist joint. Brief History - From Admission Written by Christie Cooley, acting as scribe for Dr. Coto on 09/15/17 at 22:38. The patient was seen in the hospital room. The patient states she is HIV +. Right wrist has been swollen for 12 days; pain radiates up arm from wrist. She went to a hospital in [place] and xray and ct scan were done and antibiotics. She took 9 days of antibiotics - Clindamycin. Septic arthritis vs cryoglobulinemia. She went to her doctor who manages her HIV and he told her to stop the antibiotics. Denies fevers. The patient denies any history of arthritis. Past two weeks: denies chest pain, dizziness, shortness of breath, nausea, vomiting, diarrhea, black or red stool. No animal or insect bites. She states she just woke up one morning and right wrist was swollen. Denies injury. Left hand is also noted to be swollen during visit; denies injury. CBC/BMP: 09/15/17 1450 09/16/17 0604 Significant Findings Laboratory Tests Test 09/15/17 14:50 09/16/17 06:04 09/16/17 15:07 Red Blood Count 3.22 MIL/MM3 (4.00-5.30) Hemoglobin 11.0 GM/DL (11.6-15.3) Hematocrit 31.5 % (35.0-46.0) Monocytes (%) (Auto) 9.1 % (0.0-8.0) Erythrocyte Sedimentation Rate 68 mm/hr (0-20) Activated Partial Thromboplast Time 31.3 SEC (24.3-30.1) Creatinine 1.64 MG/DL (0.50-1.00) 1.50 MG/DL (0.50-1.00) Estimat Glomerular Filtration Rate 40 ML/MIN (>89) 45 ML/MIN (>89) C-Reactive Protein 1.28 MG/DL (0.00-0.30) Sodium Level 135 MEQ/L (136-145) Anion Gap 4 MEQ/L (5-15) Free Thyroxine 0.18 NG/DL (0.76-1.46) Thyroid Stimulating Hormone 3rd Gen GREATER THAN 100.000 uIU/ML Imaging Last Impressions Wrist MRI 09/15/17 0000 Signed Impressions: Service Date/Time: Friday, September 15, 2017 14:18 - CONCLUSION: 1. Minimal bony edema identified along the ulnar side of the lunate. Carpal bones are otherwise intact. 2. Very small joint effusion. 3. Edema in the volar soft tissues of the wrist, particularly overlying the distal ulna.. Raúl Willis MD Aspiration 09/15/17 0000 Signed Impressions: Service Date/Time: Friday, September 15, 2017 16:19 - CONCLUSION: Uncomplicated aspiration as above. Roger Askew Jr., MD PE at Discharge GENERAL: This is a well-nourished, well-developed patient, in no apparent distress. CARDIOVASCULAR: Regular rate and regular rhythm without murmurs, gallops, or rubs. RESPIRATORY: Clear to auscultation. Breath sounds equal bilaterally. No wheezes , rales, or rhonchi. GASTROINTESTINAL: Abdomen soft, non-tender, nondistended. Normal, active bowel sounds MUSCULOSKELETAL: right wrist is mildly swollen. NEURO: Alert & Oriented x4 to person, place, time, situation. Moves all ext x4 Hospital Course right wrist swelling/ pain with small joint effusion likely secondary to inflammatory arthritis -better today. - joint was aspirated by invasive radiologist - cultures negative - - ESR - 68 - CRP - 1.28 - continue with pain control. -RF negative- FOREIGN negative. -hand surgery evaluation appreciated; will discharge on po steroids. History of hypothyroidism - off medications for one year - did not follow up with pcp for recheck of labs - restarted on synthroid -TSH in 3-4 weeks- f/u as outpatient. renal insufficiency with unknown duration-likely chronic. -will monitor - avoid nephrotoxins HIV + - resumed home hiv medication DVT prophylaxis - Heparin 5000 units subq BID . Pt Condition on Discharge: Good Discharge Disposition: Discharge Home Discharge Time: <= 30 minutes Discharge Instructions DIET: Follow Instructions for: Heart Healthy Diet Activities you can perform: Regular-No Restrictions Follow up Referrals: PCP Follow-up New Medications: Methylprednisolone Dosepak (Medrol Dosepak) 4 Mg Dspk 4 MG PO DIRECTED, #1 DSPK 0 Refills Per Pharmacist direction Hydrocodone-Acetaminophen (Hydrocodone-Acetaminophen) 5-325 mg Tab 1 TAB PO Q6HR PRN for PAIN > 5, #10 TAB 0 Refills Levothyroxine (Synthroid) 50 Mcg Tab 50 MCG PO DAILY@0600 for hypothyroidism for 30 Days, TAB 0 Refills Continued Medications: Mlodnefe-Ivwrxuoubspn-Giipipwnke (Triumeq) 600-50-300 Mg Tab 1 TAB PO DAILY for Mgmt Viral Infection, #30 TAB 0 Refills Hazardous agent; use appropriate precautions for handling & disposal. [unknown HIV med] () Valeri Millan MD Sep 18, 2017 12:18
== END 2017-09-18 14:54 | disposition home or self-care (01) | DRG 566 ==
LOC: NEPD 12:00 → NEDA 18:13 → N06B 19:14
PROVIDERS: ADMIT Internal Medicine; ATTEND Internal Medicine
PROC: 0R9N3ZX Drainage of Right Wrist Joint, Percutaneous Approach, Diagnostic (ICD-10-PCS; principal; 2017-09-15)
DX: M25.431 Effusion, right wrist (principal); E03.9 Hypothyroidism, unspecified; N18.9 Chronic kidney disease, unspecified; M13.831 Other specified arthritis, right wrist; Z21 Asymptomatic human immunodeficiency virus [HIV] infection status; Z88.0 Allergy status to penicillin
CPT/HCPCS: 20605; 73221; 77002; 80048; 80053; 84439; 84443; 85025; 85610; 85652; 85730; 86038; 86140; 86430; 87070; 87205; J1644; J2405